=== PATIENT | female | born 1980 | race Caucasian/White ===

== ENCOUNTER 2018-12-17 10:44 | Outpatient (CLI) | payer BC ==
--- NOTE | 2018-12-17 11:30 | RAD ---
EXAM: 4 views of the right knee HISTORY: Knee pain COMPARISON: None FINDINGS: No knee effusion is seen. There is no evidence of acute fracture or dislocation. No signifi cant degenerative changes are seen. No soft tissue swelling is present. IMPRESSION: No evidence of acute osseous abnormality.
== END 2018-12-17 10:45 | disposition home or self-care (01) ==
LOC: SCSRAD 10:44
PROVIDERS: ATTEND Chiropractor
DX: M25.561 Pain in right knee (principal)